=== PATIENT | female | born 2000 | race Caucasian/White ===

== ENCOUNTER → 2021-09-05 | Outpatient (CLI) | payer BC ==
--- NOTE | 2021-09-05 17:41 | Diagnostic Imaging Report ---
HISTORY: Fall on head, felt neck pop, concussion. TECHNIQUE: 5 views of the cervical spine. COMPARISON: None FINDINGS: Alignment of the cervical spine is normal. Prevertebral soft tissues are normal. Vertebral body heights and disc heights are preserved. C1-C2 alignment is normal. There is no osseous encroachment of the neuroforamina bilaterally. IMPRESSION: 1. No acute osseous abnormality is seen in the cervical spine. Dictated by: Dictated on workstation # [id number]
== END ==
LOC: RAD 17:05
PROVIDERS: ATTEND Family Medicine
DX: S06.0X0A Concussion without loss of consciousness, initial encounter (principal); S13.4XXA Sprain of ligaments of cervical spine, initial encounter; G44.89 Other headache syndrome; W19.XXXA Unspecified fall, initial encounter; Y92.39 Other specified sports and athletic area as the place of occurrence of the external cause
CPT/HCPCS: 72050